=== PATIENT | female | born 1970 | race African-American/Black ===

== ENCOUNTER 2017-11-06 08:07 | Emergency (ER) | payer MEDICAID ==
[~2017-11-06] VITALS: Ht 165.1 cm; Wt 68.0 kg
[2017-11-06 08:50] VITALS: BP 157/110
== END 2017-11-06 10:18 | disposition home or self-care (01) ==
LOC: ER 08:07
DX: K04.7 Periapical abscess without sinus (principal); I10 Essential (primary) hypertension; F17.210 Nicotine dependence, cigarettes, uncomplicated